=== PATIENT | female | born 1960 | race Caucasian/White ===

== ENCOUNTER → 2016-12-31 | Outpatient (CLI) | payer MEDICAID, MEDICARE ==
[~2016-12-31] MED LIST: ALBU18HF2 INH; BECL8.7H INH; CARI350T26 PO; CETI-269 PO; DIPH25CA84 PO; DULO30CA52 PO; ESTR42.5 VAGINALLY; FLUT1DIS3 ORAL INH; FOLI1TAB15 PO; GABA-338 PO; HYDR30CR79 TOP; IPRA3AMP AEROSOL; LACT1CAP14 PO; METH2.5T6 PO; OMEP20CA10 PO; PILO5TAB PO; ZOLP5TAB2 PO; [UNRECOGNIZED DRUG - CODE] PO
== END ==
LOC: SS 20:00
PROVIDERS: ATTEND Internal Medicine Sleep Medicine
DX: G47.33 Obstructive sleep apnea (adult) (pediatric) (principal)